=== PATIENT | female | born 1955 | race Caucasian/White ===

== ENCOUNTER 2020-02-26 12:40 | Outpatient (CLI) | payer OTHER, SELFPAY | END 2020-02-26 12:41 | disposition home or self-care (01) | LOC: LAB 12:43 | PROVIDERS: Visit Provider Nurse Practitioner Family | DX: D23.61 Other benign neoplasm of skin of right upper limb, including shoulder (principal) | CPT/HCPCS: 88304 ==

== ENCOUNTER → 2020-05-17 12:10 | Outpatient (BNVA) | payer MEDICAID, SELFPAY | PROVIDERS: Visit Provider Dermatology | DX: D48.9 Neoplasm of uncertain behavior, unspecified (principal) | CPT/HCPCS: 88304 ==

== ENCOUNTER 2022-05-21 19:27 | Inpatient (IN) | payer MEDICARE, SELFPAY ==
[2022-05-21 19:43] VITALS: BP 148/71; PULSE 103; RESP 18; TEMP 38.3; O2SAT 94; BMI 29.2
[2022-05-21 20:50] LABS: Basophils # 0.1 10^3/uL (0.0-0.1); Basophils % 0.5 %; Eosinophils % 0.3 %; Hematocrit 37.3 % (37.0-47.0); Lymphocytes # 0.6 10^3/uL (0.8-4.8); Mean Corpuscular HGB Conc 32.2 g/dL (30.0-36.0); Mean Corpuscular Hemoglobin 28.9 pg (28.0-34.0); Mean Corpuscular Volume 89.9 fl (81-99); Mean Platelet Volume 9.9 fL (7.4-10.4); Monocytes # 0.6 10^3/uL (0.2-0.9); Monocytes % 6.2 %; Neutrophils # 8.81 10^3/uL (1.8-7.7); Neutrophils % 86.5 %; Nucleated Red Blood Cells % 0 %; Platelet Count 278 10^3/cmm (130-400); Red Blood Count 4.15 10^6/uL (4.1-5.3); Red Cell Distribution Width 14.1 % (12.1-15.1); White Blood Count 10.2 10^3/uL (4.0-10.0)
[2022-05-21 21:10] LABS: Alanine Aminotransferase 22 U/L (0-33); Alkaline Phosphatase 98 U/L (35-105); Anion Gap 17.7 (5-19); Aspartate Amino Transferase 25 U/L (0-32); Blood Urea Nitrogen 9 mg/dL (8-23); Carbon Dioxide 22 mmol/L (22-29); Chloride 94 mmol/L (98-107); Creatinine Clr Calc Pharmacy 65.3991; Globulin 3.7 g/dL (1.3-4.6); Glomerular Filtration Rate 123.8 mL/min (90-130); Glucose 145 mg/dL (65-115); Lipase 17 U/L (13-60); Osmolality Calculated 271 mOsm/kg (285-295); Potassium 3.7 mmol/L (3.5-5.1); Sodium 130 mmol/L (136-145); Total Bilirubin 0.3 mg/dL (0.15-1.2); Total Protein 7.7 g/dL (6.6-8.7)
--- NOTE | 2022-05-21 21:12 | CTR_ITS ---
PROCEDURE INFORMATION: Exam: CT Abdomen And Pelvis With Contrast Exam date and time: 05/21/2022 9:32 PM Age: 67 years old Clinical indication: Pain; Other: Left flank; Additional info: Abd pain TECHNIQUE: Imaging protocol: Computed tomography of the abdomen and pelvis with contrast. Radiation optimization: All CT scans at this facility use at least one of these dose optimization techniques: automated exposure control; mA and/or kV adjustment per patient size (includes targeted exams where dose is matched to clinical indication); or iterative reconstruction. Contrast material: OMNIPAQUE 350; Contrast volume: 95 ml; Contrast route: INTRAVENOUS (IV); COMPARISON: No relevant prior studies available. RADIATION DOSE METRICS: Total DLP (mGy-cm): 873.23 FINDINGS: Lungs: There is a 4.4 mm pulmonary nodularity seen in the left lower lobe posterolaterally. Liver: Normal. No mass. Gallbladder and bile ducts: Normal. No calcified stones. No ductal dilation. Pancreas: Normal. No ductal dilation. Spleen: Normal. No splenomegaly. Adrenal glands: Normal. No mass. Kidneys and ureters: Normal. No hydronephrosis. Stomach and bowel: Diverticula are present on the descending and sigmoid colon. There is bowel wall thickening seen within the proximal sigmoid colon. Hazy in strandy opacities are seen in the proximal sigmoid mesentery compatible with inflammatory changes and diverticulitis. There is a prominent diverticulum seen along the superior aspect of the proximal sigmoid colon the measures up to 13 mm in diameter exhibiting wall enhancement. There is no evidence for perforation. Appendix: No evidence of appendicitis. Intraperitoneal space: Unremarkable. No free air. No significant fluid collection. Vasculature: Unremarkable. No abdominal aortic aneurysm. Lymph nodes: Unremarkable. No enlarged lymph nodes. Urinary bladder: Unremarkable as visualized. Reproductive: Unremarkable as visualized. Bones/joints: Unremarkable. No acute fracture. Soft tissues: Unremarkable. CT/CT abdomen pelvis w con* [id number] IMPRESSION: 1. Diverticulitis of the proximal sigmoid colon. 2. Pulmonary nodularity in the left lower lobe posterolaterally measuring 4.4 mm. For patients at low risk (minimal or absent history of smoking and of other known risk factors), no routine follow-up is indicated. For patients at high risk (history of smoking or of other known risk factors), consider optional CT Chest at 12 months. (Reference: Koffi) REFERENCES: Koffi Ashraf, et al. Guidelines for Management of Incidental Pulmonary Nodules Detected on CT Images: From the Fleischner Society 2017. Radiology. 2017;284(1):228-243.
--- NOTE | 2022-05-21 21:15 | ED_ITS ---
HPI - Abdominal Pain General: Chief Complaint: Abdominal Pain Stated Complaint: Fever\Pain on Left Side ABD Time Seen by Provider: 05/21/22 21:07 Source: patient Mode of arrival: ambulatory Limitations: no limitations History of Present Illness: 67-year-old female who states that she has been having left lower quadrant abdominal pain along with left-sided flank pain since yesterday. She states she has had fever she is febrile here to 101 states her pain is sharp in nature rates it a 6 out of 10 denies any vomiting she states she has had diarrhea she had been on Augmentin for a dental procedure that she had stopped yesterday. She denies any worsening improving factors. Associated Symptoms: Reports fever(s); Denies dysuria Review of Systems Const: Reports: fever(s) Eyes: Denies: blurry vision or eye discomfort ENMT: Denies: throat pain or dental pain Card: Denies: chest pain Resp: Denies: dyspnea GI: Reports: abdominal pain : Denies: dysuria Musc: Denies: neck pain or back pain Skin/Breast: Denies: rash Neuro: Denies: headache(s) Psych: Denies: depression Felix/Lymph: Denies: easy bruising All/Imm: Denies: urticaria PFSH ED PFSH: Medical History Depression Surgical History H/O section Social History Smoking and tobacco status: never smoked Alcohol intake: never Physical Exam Const: COMMON NORMALS: no acute distress, patient oriented x3 and healthy appearing HENMT: COMMON NORMALS: normocephalic and atraumatic HEAD & SCALP: normocephalic and atraumatic Eye: COMMON NORMALS: Equal, round and reactive pupils present and EOMs intact bilaterally PUPIL: Yes Equal, round and reactive pupils present Neck/C-Spine: COMMON NORMALS: full ROM and supple Chest: COMMONS NORMALS: normal inspection of the chest and normal palpation of entire chest wall Resp: COMMON NORMALS: normal respiratory effort, No retractions, No use of accessory muscles and clear to auscultation bilaterally AUSCULTATION: clear to auscultation bilaterally Cardio: COMMON NORMALS: regular rate, regular rhythm and No murmurs present (Cardio) RATE: regular rate RHYTHM: regular rhythm GI: COMMON NORMALS: Normal to inspection, nondistended, normoactive bowel sounds present, Soft to palpation and no masses PALPATION: Yes Soft to palpation and Yes Tenderness to palpation present (GI) Details: LLQ Extremity: COMMON NORMALS: normal to inspection and full ROM Neuro: COMMON NORMALS: patient oriented x3, moves all extremities and no focal motor deficits Psych: COMMON NORMALS: mental status grossly normal, Normal thought process present and cooperative THOUGHT PROCESS: Normal thought process present Skin: COMMON NORMALS: no rashes or lesions noted and no wounds GENERAL SKIN EXAM: no rashes or lesions noted Course Vital Signs: Vital signs: Vital Signs Temperature 101 F H 05/21/22 19:43 Pulse Rate 87 05/21/22 22:44 Respiratory Rate 20 H 05/21/22 22:44 Blood Pressure 92/73 05/21/22 22:44 Pulse Oximetry 93 05/21/22 22:44 Oxygen Delivery Me thod 05/21/22 22:44 MDM - Abdominal Pain Medical Decision Making AllPatient presents here with diverticulitis she is febrile here with pain she had just finished Augmentin we will send off for C. difficile white count is normal patient started on IV antibiotics I spoke to hospitalist who will admit. Lab Data : 05/21/22 20:40 05/21/22 20:40 Labs/Radiology: Radiology Impressions Abdomen/Pelvis CT 05/21/22 21:12 IMPRESSION: 1. Diverticulitis of the proximal sigmoid colon. 2. Pulmonary nodularity in the left lower lobe posterolaterally measuring 4.4 mm. For patients at low risk (minimal or absent history of smoking and of other known risk factors), no routine follow-up is indicated. For patients at high risk (history of smoking or of other known risk factors), consider optional CT Chest at 12 months. (Reference: Koffi) REFERENCES: Koffi Ashraf et al. Guidelines for Management of Incidental Pulmonary Nodules Detected on CT Images: From the Fleischner Society 2017. Radiology. 2017;284(1):228-243. Laboratory Results WBC 10.2 10^3/uL (4.0-10.0) H 05/21/22 20:40 RBC 4.15 10^6/uL (4.1-5.3) 05/21/22 20:40 Hgb 12.0 g/dL (11.5-15.3) 05/21/22 20:40 Hct 37.3 % (37.0-47.0) 05/21/22 20:40 MCV 89.9 fl (81-99) 05/21/22 20:40 MCH 28.9 pg (28.0-34.0) 05/21/22 20:40 MCHC 32.2 g/dL (30.0-36.0) 05/21/22 20:40 RDW 14.1 % (12.1-15.1) 05/21/22 20:40 Plt Count 278 10^3/cmm (130-400) 05/21/22 20:40 MPV 9.9 fL (7.4-10.4) 05/21/22 20:40 Neut % (Auto) 86.5 % 05/21/22 20:40 Lymph % (Auto) 6.0 % 05/21/22 20:40 Sevier % (Auto) 6.2 % 05/21/22 20:40 Eos % (Auto) 0.3 % 05/21/22 20:40 Baso % (Auto) 0.5 % 05/21/22 20:40 Neut # (Auto) 8.81 10^3/uL (1.8-7.7) H 05/21/22 20:40 Lymph # (Auto) 0.6 10^3/uL (0.8-4.8) L 05/21/22 20:40 Sevier # (Auto) 0.6 10^3/uL (0.2-0.9) 05/21/22 20:40 Eos # (Auto) 0.0 10^3/uL (0.0-0.8) 05/21/22 20:40 Baso # (Auto) 0.1 10^3/uL (0.0-0.1) 05/21/22 20:40 Nucleated RBC % (auto) 0 % 05/21/22 20:40 Nucleated RBCs # 0.0 /100WBC 05/21/22 20:40 Sodium 130 mmol/L (136-145) L 05/21/22 20:40 Potassium 3.7 mmol/L (3.5-5.1) 05/21/22 20:40 Chloride 94 mmol/L (98-107) L 05/21/22 20:40 Carbon Dioxide 22 mmol/L (22-29) 05/21/22 20:40 Anion Gap 17.7 (5-19) 05/21/22 20:40 BUN 9 mg/dL (8-23) 05/21/22 20:40 Creatinine 0.5 mg/dL (0.5-0.9) 05/21/22 20:40 GFR Calculation 123.8 mL/min (90-130) 05/21/22 20:40 Glucose 145 mg/dL (65-115) H 05/21/22 20:40 Calculated Osmolality 271 mOsm/kg (285-295) L 05/21/22 20:40 Calcium 9.0 mg/dL (8.5-10.5) 05/21/22 20:40 Total Bilirubin 0.3 mg/dL (0.15-1.2) 05/21/22 20:40 AST 25 U/L (0-32) 05/21/22 20:40 ALT 22 U/L (0-33) 05/21/22 20:40 Alkaline Phosphatase 98 U/L (35-105) 05/21/22 20:40 Total Protein 7.7 g/dL (6.6-8.7) 05/21/22 20:40 Albumin 4.0 g/dL (3.5-5.2) 05/21/22 20:40 Globulin 3.7 g/dL (1.3-4.6) 05/21/22 20:40 Lipase 17 U/L (13-60) 05/21/22 20:40 SARS-CoV-2 Ag (Rapid) negative (Negative) 05/21/22 21:21 Discharge Plan Discharge Admit Provider: Oscar Salazar Clinical Impression: Diverticulitis Condition: Stable Coding Level of Care Code 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
[2022-05-21] MEDS: acetaminophen 500 mg Tablet 1000 MG PO (21:18)
[2022-05-21 21:20] VITALS: RESP 22; O2SAT 93
[2022-05-21] MEDS: morphine 4 mg/mL SDV 1 mL IVP (21:20)
[2022-05-21] MEDS: ondansetron 2 mg/ML SDV 2 mL 4 MG IVP (21:21)
[2022-05-21 21:48] LABS: SARS Covid-2 Antigen negative (Negative)
[2022-05-21] MEDS: ciprofloxacin 400 MG/200 ML PREMIX 200 MG IV (22:35)
[2022-05-21 22:44] VITALS: BP 92/73; PULSE 87; RESP 20; O2SAT 93
[2022-05-21 22:58] VITALS: PULSE 86; RESP 18; TEMP 37.6; O2SAT 93
[2022-05-21] MEDS: sodium chloride 0.9% 1,000 ML 999 ML IV (23:02)
--- NOTE | 2022-05-21 23:41 | PM.HP ---
Providers/Chief Complaint Admitting Physician: Oscar Salazar Primary Care Provider: COLT Dee Chief Complaint: Fever\Pain on Left Side ABD History of Present Illness Pleasant 67-year-old lady with not much medical history, who recently completed a week treatment course with Augmentin for a dental procedure (she notes she has penicillin allergy but tolerated Augmentin without issues), however, has been experiencing left lower abdominal pain, left flank pain since yesterday, and today had a fever of 104 Fahrenheit due to which came into the ER. In ER she is noted with mild leukocytosis 10.2, fever 101 Fahrenheit, sinus tachycardia 103. Mild hyponatremia 130. Glucose 145. Unremarkable renal and liver parameters. Lipase not elevated. Negative rapid COVID-19. CT abdomen pelvis shows diverticulitis of proximal sigmoid colon. Also incidentally noted pulmonary nodularity in the left lower lobe posterolaterally measuring 4.4 mm. For patients at low risk (minimal or absent history of smoking and of other known risk factors), no routine follow-up is indicated. For patients at high risk (history of smoking or of other known risk factors), consider optional CT Chest at 12 months. She received NS bolus, started on Cipro, Flagyl. 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 Review of Systems Const: Denies: fever(s), chills, body aches or malaise Eyes: Denies: change in vision, eye discomfort or eye redness ENMT: Denies: throat pain, oral sores or ear or mastoid pain Card: Denies: chest pain, edema, pre-syncope or dyspnea on exertion Resp: Denies: dyspnea, productive cough, change in phlegm color or hemoptysis GI: Reports: abdominal pain and diarrhea; Denies: vomiting, constipation, hematochezia or melena : Reports: flank pain; Denies: urinary frequency or hematuria Musc: Denies: back pain, joint swelling or joint redness Skin/Breast: Denies: rash or new lesions Neuro: Denies: headache(s), numbness in extremities, weakness in extremities, dizziness, confusion or seizure-like activity Endo: Denies: polyuria or polydipsia Felix/Lymph: Denies: easy bleeding or tender lymph nodes All/Imm: Denies: urticaria or tongue swelling Medications/Allergies Home Medications Medication Instructions Recorded Confirmed Last Taken Type diclofenac sodium 100 mg mg PO 05/17/20 05/12/22 Unknown History tablet,extended release 24 hr sertraline 50 mg tablet ea PO 05/17/20 05/12/22 Unknown History valacyclovir 1 gram tablet 2,000 mg PO BID #8 tabs 11/26/20 05/12/22 Unknown Rx albuterol sulfate 90 mcg/actuation g inhalation 05/12/22 05/12/22 Unknown History aerosol inhaler trazodone 50 mg tablet 50 mg PO 05/12/22 05/12/22 Unknown History Allergies Allergy/AdvReac Type Severity Reaction Status Date / Time Sulfa (Sulfonamide Allergy Intermediate ADR-Nausea Verified 05/12/22 08:27 Antibiotics) penicillin V [From Pen-Vee K] Allergy ALGY-Swell Verified 05/12/22 08:27 Lip/Tongue/Throat PFSH Acute PFSH: Medical History (Updated 05/21/22 @ 23:58 by Oscar Salazar MD) Actinic keratosis Depression Surgical History H/O section History of partial hysterectomy Family History Other No significant family history Social History Smoking and tobacco status: never smoked Alcohol intake: never Substance/Drug Use: never Lives independently: Yes Household members: spouse Marital status: Current occupational status: employed 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 Vitals/I&O/Wt Last Vital Signs Temp 99.7 F H 05/21/22 22:58 Pulse 86 05/21/22 22:58 Resp 18 05/21/22 22:58 BP 92/73 05/21/22 22:44 Pulse Ox 93 05/21/22 22:58 O2 Del Method 05/21/22 22:44 Weight last 48 hrs Weight 72.575 kg Physical Exam Const: COMMON NORMALS: patient oriented x3 and alert GENERAL APPEARANCE: cooperative ORIENTATION/CONSCIOUSNESS: Yes awake HENMT: COMMON NORMALS: oropharynx normal Neck/C-Spine: COMMON NORMALS: no JVD Resp: COMMON NORMALS: normal respiratory effort and clear to auscultation bilaterally AUSCULTATION: clear to auscultation bilaterally Cardio: COMMON NORMALS: no JVD, regular rhythm, S1 normal heart sound present, S2 normal heart sound present and No murmurs present (Cardio) RHYTHM: regular rhythm HEART SOUNDS: S1 normal heart sound present and S2 normal heart sound present GI: COMMON NORMALS: Soft to palpation AUSCULTATION: Yes normoactive bowel sounds PALPATION: Yes Soft to palpation and Yes Tenderness to palpation present (GI) (lower) Extremity: COMMON NORMALS: no joint enlargement and no pedal edema Neuro: COMMON NORMALS: patient oriented x3 and moves all extremities SENSORIUM/ORIENTATION: Yes alert Skin: COMMON NORMALS: no rashes or lesions noted GENERAL SKIN EXAM: no rashes or lesions noted Data : 05/21/22 20:40 05/21/22 20:40 A&P Assessment and plan (1) Sepsis: Fever 101 Fahrenheit, sinus tachycardia 103. GI source with diverticulitis. Has recently just completed Augmentin. 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 We will request C. difficile, but also stool culture, ova and parasites. Empiric antibiotic coverage continued with Cipro and Flagyl. Collect blood culture, lactic acid. Received fluid bolus 1 L, continue infusion of LR. (2) Diverticulitis: Continue Cipro and Flagyl as above. Follow-up stool studies. Consider outpatient colonoscopy after recovery. (3) Lung nodule: Pulmonary nodularity in the left lower lobe posterolaterally measuring 4.4 mm. For patients at low risk (minimal or absent history of smoking and of other known risk factors), no routine follow-up is indicated. For patients at high risk (history of smoking or of other known risk factors), consider optional CT Chest at 12 months. Please have her revisit lung nodule with PCP. She has never smoked. Plan Recently completed course of Augmentin Mild hyponatremia: Sodium 130, suspect hypovolemia secondary to dehydration, diarrhea. Received fluid challenge. Continue LR. Reassess chemistry. History of depression UA obtained in ER is pending Requested home medications to be confirmed, please reconsult, resume once available. Attestations Medical Necessity Statement*: Admission of over 2 midnights anticipated for assessment of management of sepsis, diverticulitis, in spite of outpatient course of antibiotic with Augmentin. Coding Level of Care Code Acute Claims Examiner for Joseluis Fwd Diagnoses Sepsis A41.9 Diverticulitis K57.92 Lung nodule R91.1
[2022-05-22] VITALS: BP 104/53; PULSE 82; RESP 22; TEMP 36.8; O2SAT 95
[2022-05-22] MEDS: heparin 5,000 unit/mL INJ 1 mL 5000 UNIT SUBCUT
[2022-05-22] MEDS: sodium chloride 0.9% 1,000 ML 999 ML IV (00:15)
[2022-05-22 00:16] VITALS: BMI 31.7
[2022-05-22] MEDS: acetaminophen 325 mg Tablet 650 MG PO (00:32)
[2022-05-22 01:02] LABS: Urine Appearance Clear (CLEAR); Urine Color Yellow (Yellow); pH Urine 6.5 (5-7)
[2022-05-22 01:03] LABS: Add Urine Culture? No; Add Urine Microscopic? YES; Bilirubin Urine Neg (Negative); Blood Urine 3+ (Negative); Glucose Urine UA Norm (Normal); Ketones Urine Negative (Negative); Leukocyte Esterase Urine Negative (Negative); Nitrate Urine Negative (Negative); Protein Urine Neg (Negative); RBC Urine 50-80 /hpf (0-2); Specific Gravity, Urine 1.005 (1.005-1.030); Squamous Epithelial Cell Urine 0-4 /hpf (0-5); Urobilinogen Urine Norm (Negative); WBC Urine 0-4 /hpf (0-5)
[2022-05-22 01:05] LABS: Lactic Sepsis W/Reflex 1.7 mmol/L (0.5-2.2)
[2022-05-22 01:10] LABS: Basophils % 0.4 %; Eosinophils % 0.2 %; Hematocrit 34.7 % (37.0-47.0); Hemoglobin 10.7 g/dL (11.5-15.3); Lymphocytes % 11.2 %; Mean Corpuscular HGB Conc 30.8 g/dL (30.0-36.0); Mean Platelet Volume 10.2 fL (7.4-10.4); Monocytes # 0.6 10^3/uL (0.2-0.9); Monocytes % 6.5 %; Neutrophils # 7.58 10^3/uL (1.8-7.7); Neutrophils % 81.4 %; Nucleated Red Blood Cells % 0 %; Platelet Count 246 10^3/cmm (130-400); Red Blood Count 3.69 10^6/uL (4.1-5.3); Red Cell Distribution Width 14.2 % (12.1-15.1); White Blood Count 9.3 10^3/uL (4.0-10.0)
[2022-05-22 01:27] LABS: Anion Gap 16.7 (5-19); Blood Urea Nitrogen 7 mg/dL (8-23); Calcium 8.5 mg/dL (8.5-10.5); Carbon Dioxide 21 mmol/L (22-29); Chloride 99 mmol/L (98-107); Glomerular Filtration Rate 100.3 mL/min (90-130); Glucose 142 mg/dL (65-115); Osmolality Calculated 276 mOsm/kg (285-295); Potassium 3.7 mmol/L (3.5-5.1); Sodium 133 mmol/L (136-145)
[2022-05-22] MEDS: lactated ringers 1,000 ML 100 ML IV ×4 (03:39→20:07)
[2022-05-22 04:00] VITALS: BP 101/54; PULSE 75; RESP 16; TEMP 36.6; O2SAT 94
[2022-05-22 07:40] VITALS: BP 118/70; PULSE 87; RESP 16; TEMP 39.1; O2SAT 94
--- NOTE | 2022-05-22 07:40 | PC.NURSE ---
nurse was notified about temp
[2022-05-22] MEDS: ondansetron 2 mg/ML SDV 2 mL 4 MG IVP (08:19)
--- NOTE | 2022-05-22 09:33 | PM.PN ---
Subjective Subjective: Patient had 1 episode of vomiting Very tender left lower quadrant Requested general surgery consult She is n.p.o. White count has improved Febrile Vitals/I&O/Wt Last Vital Signs Temp 102.4 F H 05/22/22 07:40 Pulse 87 05/22/22 07:40 Resp 16 05/22/22 07:40 BP 118/70 05/22/22 07:40 Pulse Ox 94 05/22/22 07:40 O2 Del Method 05/22/22 07:40 05/21/22 05/22/22 05/22/22 22:59 06:59 14:59 Intake Total 2065.2 / 2065.2 Output Total 2049 Balance 16.2 / 16.2 Weight last 48 hrs Weight 80.649 kg Weight 79.923 kg Weight 78.67 kg Weight 72.575 kg Physical Exam Narrative: Awake and alert Looks slightly dehydrated Abdomen tender to palpate midepigastric and left lower quadrant Had 1 episode of emesis Nonfocal neuro exam currently on room air Doing well on room air S1, S2 Data : 05/22/22 00:05 05/22/22 00:05 Micro: Microbiology 05/21/22 00:08 Blood Culture - Preliminary Blood SPECIMEN COLLECTED 05/21/22 00:05 Blood Culture - Preliminary Blood SPECIMEN COLLECTED A&P Assessment and plan (1) Lung nodule: (2) Sepsis: (3) Diverticulitis: Plan Sepsis related to diverticulitis Continue ciprofloxacin and Flagyl Continue IV fluids I will keep her n.p.o. Requested general surgery consult I did explain expected complication diverticulitis to the patient She is full code and agreeable for surgery if needed We will follow-up with general surgery recommendations I will increase the dose of opioids to Dilaudid 0.2 mg every 4 hours DVT prophylaxis on board Attestations Medical Necessity Statement*: Continue medical management Time Spent in Patient Care: 30 Coding Level of Care Code Acute Financial Cost Analyst for [facility] Diagnoses Lung nodule R91.1 Sepsis A41.9 Diverticulitis K57.92
--- NOTE | 2022-05-22 10:42 | PM.CONSULT ---
Providers/Reason For Consult Consulting Physician/Specialty*: General Surgery Elaís Briseno MD, FACS, RPVI Reason for Consult*: Abdominal pain Attending Physician: Oscar Salazar Primary Care Provider: COLT Dee History of Present Illness History of Present Illness Yeni Maldonado is a 67 year old female She developed acute abdominal pain since Wednesday. She never had this pain before. Pain is located in left lower abdomen, constant, moving around makes it worse, up to 8 or 10, associated with nausea. She vomited multiple times. Her condition did not improve and she decided to seek medical attention. Also developed high fever, yesterday it was 104, today is 102.4. She reports pain was yesterday, she is doing better today after fluid resuscitation and medications for pain were given. History of colonoscopy 3 years ago, reportedly it was normal, it was done in [place], [place]. No history of colon cancer in her family. History of , knee replacement, tooth surgery She is in a good physical shape and can walk a mile without any difficulties. Review of Systems Narrative: 10 point review of systems is negative except as per HPI Medications/Allergies Home Medications Medication Instructions Recorded Confirmed Last Taken Type diclofenac sodium 100 mg 100 mg PO DAILY 05/17/20 05/22/22 05/21/22 History tablet,extended release 24 hr sertraline 50 mg tablet 50 ea PO DAILY 05/17/20 05/22/22 05/21/22 History albuterol sulfate 90 mcg/actuation 9 g inhalation PRN 05/12/22 05/22/22 Unknown History aerosol inhaler trazodone 50 mg tablet 50 mg PO BEDTIME 05/12/22 05/22/22 05/20/22 History cetirizine 5 mg-pseudoephedrine ER 1 tab PO BID PRN Allergy Symptoms 05/22/22 05/22/22 05/20/22 History 120 mg tablet,extended release,12hr valacyclovir 1 gram tablet 2,000 mg PO BID PRN Cold Sores 05/22/22 05/22/22 Unknown History Allergies Allergy/AdvReac Type Severity Reaction Status Date / Time Sulfa (Sulfonamide Allergy Intermediate ADR-Nausea Verified 05/12/22 08:27 Antibiotics) penicillin V [From Pen-Vee K] Allergy ALGY-Swell Verified 05/12/22 08:27 Lip/Tongue/Throat Current Medications Generic Name Dose Route Start Last Admin Trade Name Freq PRN Reason Stop Dose Admin Acetaminophen 650 mg 05/21/22 23:39 05/22/22 00:32 Acetaminophen 325 Mg Tablet PO 650 mg Q6H PRN Administration Mild/Mod Pain Or Temp >/= 101 Heparin Sodium (Porcine) 5,000 unit 05/21/22 23:45 05/22/22 00:00 Heparin 5,000 Unit/Ml Inj 1 Ml SUBCUT 5,000 unit Q12H TORI Administration Lactated Ringer's 1,000 mls @ 100 mls/hr 05/21/22 23:45 05/22/22 03:39 Lactated Ringers IV 100 mls/hr .Q10H TORI Administration Ondansetron HCl 4 mg 05/21/22 23:39 05/22/22 08:19 Ondansetron 2 Mg/Ml Sdv 2 Ml IVP 4 mg Q8H PRN Administration vomiting, or N/V if npo PFSH Acute PFSH: Medical History (Updated 05/22/22 @ 10:45 by Elías Briseno MD) Actinic keratosis Depression Surgical History H/O section History of partial hysterectomy Family History Other No significant family history Social History Smoking and tobacco status: never smoked Alcohol intake: never Substance/Drug Use: never Lives independently: Yes Household members: spouse Marital status: Current occupational status: employed 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 Vitals/I&O/Wt Last Vital Signs Temp 102.4 F H 05/22/22 07:40 Pulse 87 05/22/22 07:40 Resp 16 05/22/22 07:40 BP 118/70 05/22/22 07:40 Pulse Ox 94 05/22/22 07:40 O2 Del Method 05/22/22 07:40 05/21/22 05/22/22 05/22/22 22:59 06:59 14:59 Intake Total 2066.2 / 2066.2 Output Total 2050 / 2050 Balance 16.2 / 16.2 Weight last 48 hrs Weight 177 lb 12.8 oz Weight 176 lb 3.2 oz Weight 173 lb 7 oz Weight 160 lb Physical Exam Narrative: General: No acute distress Psych: [AAOx3] Eyes: [sclerae are white] Head/ENT: [normocephalic, symmetric] CV: [regular] pulse, [], no JVD Lungs: [symmetrical chest rise] Abdomen: [soft, ND, tender to palpation in left lower quadrant. No obvious peritoneal signs. Nontender in other quadrants. No hernias] Ext: [no obvious traumatic deformities] Skin: warm Data : 05/22/22 00:05 05/22/22 00:05 Micro: Microbiology 05/21/22 00:08 Blood Culture - Preliminary Blood SPECIMEN COLLECTED 05/21/22 00:05 Blood Culture - Preliminary Blood SPECIMEN COLLECTED A&P Assessment and plan (1) Sepsis: (2) Diverticulitis: (3) Obesity: Plan She is already doing slightly better than yesterday. CT scan consistent with acute diverticulitis, no free air, minimal output of free fluid. Her vitals are normal, her fever is better than yesterday. At this time, I do not see any indications for a surgical intervention. Continue n.p.o., IV fluids, broad-spectrum antibiotics, bowel regimen. Okay for DVT prophylaxis. Her stomach and small bowel are decompressed on CT scan. For nausea and vomiting related to intoxication from infection, possibly related to antibiotics. Consider switch to Zosyn as she may be vomiting because of the Flagyl if nausea/vomiting doesn't improve, although she is allergic to PCN. Meropenem may be anoher option. I will order KUB to ensure there is no obstruction. She will need repeat colonoscopy in 3 months after acute episode of diverticulitis. Coding Level of Care Code Acute [employer] E Business Developer for Joseluis Fowler Diagnoses Sepsis A41.9 Diverticulitis K57.92 Obesity E66.9
--- NOTE | 2022-05-22 10:51 | XRR_ITS ---
PROCEDURE INFORMATION: Exam: XR Abdomen Exam date and time: 05/22/2022 11:15 AM Age: 67 years old Clinical indication: Condition or disease; Intestinal condition; Obstruction; Additional info: Sbo TECHNIQUE: Imaging protocol: Radiologic exam of the abdomen. Views: 2 Views. Upright and supine views. COMPARISON: CT abdomen pelvis w con* [id number] 05/21/2022 9:32 PM FINDINGS: Gastrointestinal tract: No abnormally dilated air-filled bowel loops identified. Intraperitoneal space: No significant mass effect identified within the abdomen. Bones/joints: Unremarkable. XR/XR abdomen min 2V [id number] IMPRESSION: Nonobstructive bowel gas pattern.
[2022-05-22] MEDS: ketorolac 30 mg/mL INJ 15 MG IVP ×3 (11:56→23:18)
[2022-05-22] MEDS: enoxaparin 40 mg/0.4 mL Syringe SUBCUT (11:56)
[2022-05-22 12:00] VITALS: BP 112/68; PULSE 84; RESP 16; TEMP 36.9; O2SAT 95
[2022-05-22] MEDS: ciprofloxacin 400 MG/200 ML PREMIX 200 MG IV ×2 (12:00→23:23)
[2022-05-22] MEDS: metroNIDAZOLE IV 500 MG/100 ML PREMIX 100 MG IV ×3 (12:00→18:18)
[2022-05-22 16:00] VITALS: BP 110/62; PULSE 85; RESP 16; TEMP 36.7; O2SAT 96
[2022-05-22] MEDS: docusate sodium 100 mg Capsule PO (18:21)
[2022-05-22 20:00] VITALS: BP 126/75; PULSE 80; RESP 16; TEMP 36.7; O2SAT 94
[2022-05-23] VITALS: BP 120/73; PULSE 81; RESP 16; TEMP 36.8; O2SAT 93
[2022-05-23] MEDS: metroNIDAZOLE IV 500 MG/100 ML PREMIX 100 MG IV (01:39)
[2022-05-23 03:54] VITALS: BP 116/69; PULSE 69; RESP 16; TEMP 37.3; O2SAT 94
[2022-05-23 05:36] LABS: Basophils % 0.6 %; Eosinophils % 0.3 %; Hematocrit 32.6 % (37.0-47.0); Hemoglobin 10.3 g/dL (11.5-15.3); Lymphocytes # 0.8 10^3/uL (0.8-4.8); Lymphocytes % 11.6 %; Mean Corpuscular HGB Conc 31.6 g/dL (30.0-36.0); Mean Corpuscular Hemoglobin 28.8 pg (28.0-34.0); Mean Corpuscular Volume 91.1 fl (81-99); Mean Platelet Volume 9.9 fL (7.4-10.4); Monocytes # 0.6 10^3/uL (0.2-0.9); Neutrophils # 5.43 10^3/uL (1.8-7.7); Neutrophils % 79.1 %; Nucleated Red Blood Cells % 0 %; Platelet Count 203 10^3/cmm (130-400); Red Blood Count 3.58 10^6/uL (4.1-5.3); Red Cell Distribution Width 13.8 % (12.1-15.1); White Blood Count 6.9 10^3/uL (4.0-10.0)
[2022-05-23] MEDS: ketorolac 30 mg/mL INJ 15 MG IVP (05:37)
[2022-05-23 05:53] LABS: Anion Gap 11.7 (5-19); Blood Urea Nitrogen 6 mg/dL (8-23); Calcium 8.6 mg/dL (8.5-10.5); Carbon Dioxide 27 mmol/L (22-29); Chloride 99 mmol/L (98-107); Glomerular Filtration Rate 100.3 mL/min (90-130); Glucose 104 mg/dL (65-115); Osmolality Calculated 276 mOsm/kg (285-295); Potassium 3.7 mmol/L (3.5-5.1); Sodium 134 mmol/L (136-145)
[2022-05-23 07:31] VITALS: BP 117/70; PULSE 73; RESP 18; TEMP 36.9; O2SAT 95
--- NOTE | 2022-05-23 09:54 | P.PN_ITS ---
Subjective Subjective: Overall patient seems to be doing well. Denies any abdominal pain. Patient was seen and evaluated by Dr.Raman Briseno,?[facility] and he checked out to me today. Medications: Reviewed: Yes Vitals/I&O/Wt Last Vital Signs Temp 98.4 F 05/23/22 07:31 Pulse 73 05/23/22 07:31 Resp 18 05/23/22 07:31 BP 117/70 05/23/22 07:31 Pulse Ox 95 05/23/22 07:31 O2 Del Method 05/23/22 07:31 05/22/22 05/23/22 05/23/22 22:59 06:59 14:59 Intake Total 1155 / 2406.668 300 / 2706.668 Output Total 350 / 650 1650 / 2300 Balance 805 / 1756.668 -1350 / 406.668 Weight last 48 hrs Weight 177 lb 12.8 oz Weight 176 lb 3.2 oz Weight 173 lb 7 oz Weight 160 lb Physical Exam Const: COMMON NORMALS: no acute distress and patient oriented x3 GENERAL APPEARANCE: cooperative ORIENTATION/CONSCIOUSNESS: Yes awake, Yes oriented to person, Yes oriented to place and Yes oriented to time HENMT: COMMON NORMALS: normocephalic HEAD & SCALP: normocephalic Eye: COMMON NORMALS: Equal, round and reactive pupils present and no scleral icterus PUPIL: Yes Equal, round and reactive pupils present Lymph: LYMPHATIC: no lymphadenopathy noted Chest: COMMONS NORMALS: normal inspection of the chest Resp: COMMON NORMALS: normal respiratory effort and clear to auscultation jessica aterally AUSCULTATION: clear to auscultation bilaterally Cardio: COMMON NORMALS: S1 normal heart sound present and S2 normal heart sound present; negative for No murmurs present (Cardio) HEART SOUNDS: S1 normal heart sound present and S2 normal heart sound present GI: COMMON NORMALS: Soft to palpation; negative for No hepatosplenomegaly present INSPECTION: Yes normal to inspection PALPATION: Yes Soft to palpation, No Firmness to palpation present (GI), No Tenderness to palpation present (GI), No Guarding due to palpation present (GI), No Rigid due to palpation and No No hepatosplenomegaly present Neuro: COMMON NORMALS: patient oriented x3 SENSORIUM/ORIENTATION: Yes oriented to person, Yes oriented to place and Yes oriented to time Psych: COMMON NORMALS: mental status grossly normal Skin: COMMON NORMALS: no rashes or lesions noted GENERAL SKIN EXAM: no ra shes or lesions noted Data : 05/23/22 05:12 05/23/22 05:12 Micro: Microbiology 05/22/22 18:35 C.difficile Toxin B Gene (PCR) - Final Stool Routine Collection 05/21/22 00:08 Blood Culture - Preliminary Blood NEGATIVE TO DATE 05/21/22 00:05 Blood Culture - Preliminary Blood NEGATIVE TO DATE A&P Assessment and plan (1) Diverticulitis: Assessment 67 years old female patient with acute episode of diverticulitis responding to conservative management plan of care; After history taking physical examination and reviewing the chart and images with my personal interpretation. Associated sigmoid colitis due to underlying diverticuli being inflamed. Start the patient on clear liquid diet advance to full liquid diet once tolerates it for couple of days then to soft GI diet. Review the pathology with the patient Return to primary care provider Avoid constipation Avoid seeds nuts and popcorn High Fiber diet; As Fiber softens the stool and helps prevent constipation. It also can help decrease pressure in the colon and help prevent flare-ups of diverticulitis. High-fiber foods include: ? Beans and legumes ? Bran, whole wheat bread and whole grain cereals such as oatmeal ? Brown and wild rice ? Fruits such as apples, bananas and pears ? Vegetables such as broccoli, carrots, corn and squash ? Whole wheat pasta The target is to eat 25 to 30 grams of fiber daily. Drink at least 8 cups of fluid daily. Fluid will help soften your stool.Exercise also promotes bowel movement and helps prevent constipation. Patient will require colonoscopy in 6 to 8 weeks to rule out underlying malignancy Weight management Assurance and education All questions have been answered Attestations Medical Necessity Statement*: Per admitting service Coding Level of Care Code Acute Automat Car Attendant for g Fwd Exam Comprehensive Diagnoses Diverticulitis K57.92
--- NOTE | 2022-05-23 10:41 | P.DS_ITS ---
Discharge Providers Date of Admission: 05/21/22 22:27 Date of Discharge: May 23, 2022 Attending Provider at Admission: Oscar Salazar Attending Provider at Discharge: Tricia Alvarez MD Primary Care Provider: COLT Dee Diagnoses at Discharge Discharge Diagnosis (1) Diverticulitis: Status: Acute Reason for Visit Reason for Visit: Fever\Pain on Left Side ABD Hospital Course Hospital Course 67-year female who presented with diverticulitis, there was concern for sepsis in the beginning which improved with use of IV fluids and antibiotics, her symptoms resolved patient was having regular bowel movement, she was tolerating her diet, he was subsided she was cleared by general surgery to go home on 05/23 on ciprofloxacin and Flagyl 10-day regimen. She will need colonoscopy with Dr. Lynne after 6 PM[address] appointment [address] Lynne. He has been given ciprofloxacin and Flagyl 10-day regimen, ondansetron, opioid As per the patient her previous colonoscopy which was a few years ago was unremarkable no history of cancer. She does endorse constipation. C. difficile negative. Physical Exam Narrative: Abdomen is soft Patient is awake and alert Tolerating diet Nonfocal neuro exam Currently doing well on room air Normotensive Pleasant and cooperative Discharge Data Studies Completed and Pending Completed Studies During Hospitalization Category Date Time Status CT abdomen pelvis w con* [id number] Stat Cat Scan 05/21/22 21:12 Completed XR abdomen min 2V [id number] Stat Exams 05/22/22 10:51 Completed Pending at discharge Category Date Time Status Basic Metabolic Panel AM LABS Lab 05/24/22 04:00 Ordered Blood Culture Stat Lab 05/21/22 00:08 Results Complete Blood Count w/Auto AM LABS Lab 05/24/22 04:00 Ordered OVA and Parasites, Conc and PE Routine Lab 05/22/22 18:35 Received Stool Culture, Bacterial [Enteric Bacterial Panel by Lab 05/22/22 18:35 Received PCR] Routine Radiology Impressions Abdomen/Pelvis CT 05/21/22 21:12 IMPRESSION: 1. Diverticulitis of the proximal sigmoid colon. 2. Pulmonary nodularity in the left lower lobe posterolaterally measuring 4.4 mm. For patients at low risk (minimal or absent history of smoking and of other known risk factors), no routine follow-up is indicated. For patients at high risk (history of smoking or of other known risk factors), consider optional CT Chest at 12 months. (Reference: Koffi) REFERENCES: Koffi Ashraf, et al. Guidelines for Management of Incidental Pulmonary Nodules Detected on CT Images: From the Fleischner Society 2017. Radiology. 2017;284(1):228-243. Abdomen X-Ray 05/22/22 10:51 IMPRESSION: Nonobstructive bowel gas pattern. Laboratory Results WBC 6.9 10^3/uL (4.0-10.0) 05/23/22 05:12 RBC 3.58 10^6/uL (4.1-5.3) L 05/23/22 05:12 Hgb 10.3 g/dL (11.5-15.3) L 05/23/22 05:12 Hct 32.6 % (37.0-47.0) L 05/23/22 05:12 MCV 91.1 fl (81-99) 05/23/22 05:12 MCH 28.8 pg (28.0-34.0) 05/23/22 05:12 MCHC 31.6 g/dL (30.0-36.0) 05/23/22 05:12 RDW 13.8 % (12.1-15.1) 05/23/22 05:12 Plt Count 203 10^3/cmm (130-400) 05/23/22 05:12 MPV 9.9 fL (7.4-10.4) 05/23/22 05:12 Neut % (Auto) 79.1 % 05/23/22 05:12 Lymph % (Auto) 11.6 % 05/23/22 05:12 [place] % (Auto) 8.0 % 05/23/22 05:12 Eos % (Auto) 0.3 % 05/23/22 05:12 Baso % (Auto) 0.6 % 05/23/22 05:12 Neut # (Auto) 5.43 10^3/uL (1.8-7.7) 05/23/22 05:12 Lymph # (Auto) 0.8 10^3/uL (0.8-4.8) 05/23/22 05:12 [place] # (Auto) 0.6 10^3/uL (0.2-0.9) 05/23/22 05:12 Eos # (Auto) 0.0 10^3/uL (0.0-0.8) 05/23/22 05:12 Baso # (Auto) 0.0 10^3/uL (0.0-0.1) 05/23/22 05:12 Nucleated RBC % (auto) 0 % 05/23/22 05:12 Nucleated RBCs # 0.0 /100WBC 05/23/22 05:12 Sodium 134 mmol/L (136-145) L 05/23/22 05:12 Potassium 3.7 mmol/L (3.5-5.1) 05/23/22 05:12 Chloride 99 mmol/L (98-107) 05/23/22 05:12 Carbon Dioxide 27 mmol/L (22-29) 05/23/22 05:12 Anion Gap 11.7 (5-19) 05/23/22 05:12 BUN 6 mg/dL (8-23) L 05/23/22 05:12 Creatinine 0.6 mg/dL (0.5-0.9) 05/23/22 05:12 GFR Calculation 100.3 mL/min (90-130) 05/23/22 05:12 Glucose 104 mg/dL (65-115) 05/23/22 05:12 Calculated Osmolality 276 mOsm/kg (285-295) L 05/23/22 05:12 Lactic Acid 1.7 mmol/L (0.5-2.2) 05/21/22 00:05 Calcium 8.6 mg/dL (8.5-10.5) 05/23/22 05:12 Total Bilirubin 0.3 mg/dL (0.15-1.2) 05/21/22 20:40 AST 25 U/L (0-32) 05/21/22 20:40 ALT 22 U/L (0-33) 05/21/22 20:40 Alkaline Phosphatase 98 U/L (35-105) 05/21/22 20:40 Total Protein 7.7 g/dL (6.6-8.7) 05/21/22 20:40 Albumin 4.0 g/dL (3.5-5.2) 05/21/22 20:40 Globulin 3.7 g/dL (1.3-4.6) 05/21/22 20:40 Lipase 17 U/L (13-60) 05/21/22 20:40 Urine Color Yellow (Yellow) 05/21/22 23:40 Urine Appearance Clear (CLEAR) 05/21/22 23:40 Urine pH 6.5 (5-7) 05/21/22 23:40 Ur Specific [place] 1.005 (1.005-1.030) 05/21/22 23:40 Urine Protein Neg (Negative) 05/21/22 23:40 Urine Glucose (UA) Norm (Normal) 05/21/22 23:40 Urine Ketones Negative (Negative) 05/21/22 23:40 Urine Blood 3+ (Negative) H 05/21/22 23:40 Urine Nitrate Negative (Negative) 05/21/22 23:40 Urine Bilirubin Neg (Negative) 05/21/22 23:40 Urine Urobilinogen Norm mg/dL (Negative) 05/21/22 23:40 Ur Leukocyte Esterase Negative (Negative) 05/21/22 23:40 Urine RBC 50-80 /hpf (0-2) H 05/21/22 23:40 Urine WBC 0-4 /hpf (0-5) H 05/21/22 23:40 Ur Squamous Epith Cells 0-4 /hpf (0-5) H 05/21/22 23:40 Amorphous Sediment Not Reportable 05/21/22 23:40 Urine Bacteria None /hpf (NONE) 05/21/22 23:40 SARS-CoV-2 Ag (Rapid) negative (Negative) 05/21/22 21:21 Vitals Last Vital Signs Temp 98.4 F 05/23/22 07:31 Pulse 73 05/23/22 07:31 Resp 18 05/23/22 07:31 BP 117/70 05/23/22 07:31 Pulse Ox 95 05/23/22 07:31 O2 Del Method 05/23/22 07:31 Discharge Plan Discharge Patient Disposition: Home Condition: Stable Prescriptions: New oxycodone-acetaminophen 5-325 mg tablet 1 tab PO Q8H PRN (Reason: pain) Qty: 10 0RF ciprofloxacin HCl 500 mg tablet 500 mg PO BID Qty: 20 0RF metronidazole 500 mg tablet 500 mg PO Q8H 10 Days Qty: 30 0RF ondansetron HCl 4 mg tablet 4 mg PO DAILY 3 Days Qty: 10 0RF Continued sertraline 50 mg tablet 50 ea PO DAILY albuterol sulfate 90 mcg/actuation HFA aerosol inhaler 9 g inhalation PRN trazodone 50 mg tablet 50 mg PO BEDTIME valacyclovir 1 gram tablet 2,000 mg PO BID PRN (Reason: Cold Sores) Rx Instructions: Take 2 pills by mouth at first sign of onset then repeat 2 pills by mouth 12 hours later cetirizine-pseudoephedrine 5-120 mg Tablet Extended Release 12 Hr 1 tab PO BID PRN (Reason: Allergy Symptoms) Discontinued diclofenac sodium 100 mg tablet extended release 24 hr 100 mg PO DAILY Discharge Orders: Discharge Order (Routine); Ordered 05/23/22 Ordered By: Tricia Alvarez Referrals: Gabriel Lynne DO [Physician] - 6 Weeks Nelly Jensen FNP [Primary Care Provider] - 1 month Discharge Diet: Regular Discharge Activity: Increase activity as tolerated Patient Instructions: Opioid Safety Activity Restrictions/Additional Instructions: Finished 10 days of antibiotics you did not have Clostridium infection Avoid constipation Avoid seeds nuts and popcorn High Fiber diet; As Fiber softens the stool and helps prevent constipation. It also can help decrease pressure in the colon and help prevent flare-ups of diverticulitis. High-fiber foods include: ? Beans and legumes ? Bran, whole wheat bread and whole grain cereals such as oatmeal ? Brown and wild rice ? Fruits such as apples, bananas and pears ? Vegetables such as broccoli, carrots, corn and squash ? Whole wheat pasta ?The target is to eat 25 to 30 grams of fiber daily. Drink at least 8 cups of fluid daily. Fluid will help soften your stool.Exercise also promotes bowel movement and helps prevent constipation. you will require colonoscopy in 6 to 8 weeks to rule out underlying malignancy Weight management Assurance and education Discharge Attestations Time Spent in Discharge Care*: less than 30 min Quality Metrics Clinical Quality Measures [ No reported AMI, CVA or VTE this stay] Coding Level of Care Code Acute Chg FW DC note Diagnoses Diverticulitis K57.92
[2022-05-23 11:52] VITALS: BP 117/70; PULSE 73; RESP 18; TEMP 36.9; O2SAT 95
[2022-05-23 12:00] VITALS: BP 136/64; PULSE 84; RESP 18; TEMP 36.7; O2SAT 100
== END 2022-05-23 11:55 | disposition home or self-care (01) | DRG 392 ==
LOC: ER 21:16 → MEDSURG 22:44
PROVIDERS: Admitting Provider Internal Medicine; Emergency Provider Emergency Medicine; PCP Nurse Practitioner Family; Visit Provider Internal Medicine
DX: K57.32 Diverticulitis of large intestine without perforation or abscess without bleeding (principal); E87.1 Hypo-osmolality and hyponatremia; R91.8 Other nonspecific abnormal finding of lung field; E86.0 Dehydration; K59.00 Constipation, unspecified; F32.A Depression, unspecified
CPT/HCPCS: 12345; 36415; 74019; 74177; 80048; 80053; 81001; 81003; 83605; 83690; 85025; 87040; 87177; 87209; 87426; 87493; 87506; 96365; 96367; 96372; 96375; 99285; J0744; J1644; J1650; J1885; J2270; J2405; J3490; J7030; J7120; Q9967

== ENCOUNTER → 2022-06-12 09:35 | Outpatient (BNVA) | payer MEDICARE, SELFPAY | PROVIDERS: PCP Nurse Practitioner Family; Visit Provider Surgery | DX: Z09 Encounter for follow-up examination after completed treatment for conditions other than malignant neoplasm (principal); K57.92 Diverticulitis of intestine, part unspecified, without perforation or abscess without bleeding | CPT/HCPCS: 99203; 99213 ==

== ENCOUNTER → 2023-08-12 09:05 | Outpatient (BNVA) | payer MEDICARE, SELFPAY | PROVIDERS: PCP Nurse Practitioner Family; Visit Provider Nurse Practitioner Family | DX: Z87.2 Personal history of diseases of the skin and subcutaneous tissue (principal); D17.1 Benign lipomatous neoplasm of skin and subcutaneous tissue of trunk; L57.8 Other skin changes due to chronic exposure to nonionizing radiation; D22.4 Melanocytic nevi of scalp and neck | CPT/HCPCS: 17000; 99213 ==

== ENCOUNTER → 2024-07-06 08:27 | Outpatient (BNVA) | payer MEDICARE, SELFPAY | PROVIDERS: PCP Nurse Practitioner Family; Visit Provider Nurse Practitioner Family | DX: L57.8 Other skin changes due to chronic exposure to nonionizing radiation (principal); D22.4 Melanocytic nevi of scalp and neck; L81.4 Other melanin hyperpigmentation; L60.8 Other nail disorders; L82.0 Inflamed seborrheic keratosis; Z78.9 Other specified health status; L57.0 Actinic keratosis | CPT/HCPCS: 17000; 17110; 99213 ==

== ENCOUNTER → 2025-07-11 08:46 | Outpatient (BNVA) | payer MEDICARE, SELFPAY | PROVIDERS: PCP Nurse Practitioner Family; Visit Provider Nurse Practitioner Family | DX: D48.5 Neoplasm of uncertain behavior of skin (principal); L82.0 Inflamed seborrheic keratosis; B07.8 Other viral warts; B00.1 Herpesviral vesicular dermatitis; L57.8 Other skin changes due to chronic exposure to nonionizing radiation; L81.4 Other melanin hyperpigmentation; D18.01 Hemangioma of skin and subcutaneous tissue | CPT/HCPCS: 11102; 17110; 99213 ==